=== PATIENT | male | born 2000 | race American Indian/Alaskan Native ===

== ENCOUNTER 2019-11-13 11:32 | Emergency (ER) | payer SELFPAY ==
[2019-11-13 11:50] VITALS: BP 139/77
--- NOTE | 2019-11-13 11:52 | Emergency Department Report ---
Chief Complaint: Animal Bite Stated Complaint: BUG BITE Time Seen by Provider: 11/13/19 11:48 - HPI History of Present Illness: 19-year-old -[place] male presents to the emergency room reporting that he got bit by spider to his left arm yesterday. Patient also reports that he has been feeling kind of weak and under the weather for the last week. Patient denies any fever chills no vomiting mild nausea no diarrhea. Patient denies any shortness of breath mild chest pain located midsternal. Chest pain worse with palpation. Patient reports eating well drinking well having no diarrhea. Patient does endorse that he has a history of seizures but does not take any medications. - Exam Vital Signs: Vital Signs 11/13/19 11:37 Temperature 98.2 F Pulse Rate 70 Respiratory 16 Rate Blood Pressure 149/100 O2 Sat by Pulse 100 Oximetry Physical Exam: Gen: alert oriented NAD Cardic: regular rate and rhythm no murmurs appreciated Resp: Clear to auscultation bilateral no wheezing no rales or rhonchi. Chest wall tenderness Abdomen: Soft nontender nondistended normal bowel sounds. skin: Normal MSE screening note: Focused history and physical exam performed. Due to findings the following was ordered: 19-year-old -[place] male presents to the emergency room reporting that he got bit by spider to his left arm yesterday. Patient also reports that he has been feeling kind of weak and under the weather for the last week. Patient denies any fever chills no vomiting mild nausea no diarrhea. Patient denies any shortness of breath mild chest pain located midsternal. Chest pain worse with palpation. Patient reports eating well drinking well having no diarrhea. Patient does endorse that he has a history of seizures but does not take any medications. Discussed with patient that his spider bite is not visible no swelling nonerythematous. Patient denies any chest pain shortness of breathing. ED Disposition for MSE Clinical Impression: Chest wall tenderness Disposition: Z MED SCREENING EXAM-LEFT Is pt being admited?: No Does the pt Need Aspirin: No Condition: Stable Instructions: Costochondritis (ED) Additional Instructions: Recommend to take some ibuprofen or Tylenol for chest wall tenderness. Follow- up with a primary care provider. Referrals: CATHY DERAS MD [Staff Physician] - 3-5 Days [facility] [Provider Group] - 3-5 Days Forms: Work/School Release Form(ED)
== END 2019-11-13 12:00 | disposition left against medical advice (07) ==
LOC: ED 11:32
DX: R07.89 Other chest pain (principal); Z53.21 Procedure and treatment not carried out due to patient leaving prior to being seen by health care provider
CPT/HCPCS: 99282